=== PATIENT | female | born 1965 | race Two or more races ===

== ENCOUNTER 2025-02-22 10:09 | Emergency (ER) | payer OTHER ==
[~2025-02-22] VITALS: Ht 160 cm; Wt 78.4 kg
--- NOTE | 2025-02-22 10:29 | ED.PDOC ---
HPI (NEURO) HPI Comments 59 year old female PMHx HLD presents to the ED with a chief complaint of LT sided facial numbness onset today (02/22/25) around 07:00. Patient states she woke up around 07:00, noticed LT sided facial numbness with drooping. She went to bed last night around 200:00 with no symptoms. Upon ED arrival BP was 207/108. Patient was given Clonidine 0.2 mg PO. Denies chest pain, shortness of breath, headache, dizziness, fever, chills, blurred vision, changes in vision, nausea, vomiting. No other symptoms or modifying factors present at this time. Chief Complaint: High Blood Pressure Time Seen by MD: 10:20 Reviewed Notes: Medications, Allergies Information Source: Patient Mode of Arrival: Ambulatory Severity: Moderate Timing: Hours Duration: Since onset Prehospital treatment: None Numbness Location: Facial (LT sided) Onset: At rest Circumstances: Spontaneous Symptoms: Numbness (LT facial) Before: Normal History of: None Modifying factors: Nothing Associated Signs and Symptoms: Numbness Past Medical History PAST MEDICAL HISTORY: High Lipids Surgical History: Appendectomy, Hysterectomy HOME VISITOR History: No Pertinent HOME VISITOR History Family History Family History: Family hx of DM, Family hx of HTN Social History Smoker: Non-Smoker Alcohol: Denies ETOH Use Drugs: Denies Drug Use Lives In: Home Constitutional: denies: chills, diaphoresis, fatigue, fever, malaise, sweats, weakness, others EENTM: reports: others (Left facial droop); denies: blurred vision, double vision, ear bleeding, ear discharge, ear drainage, ear pain, ear ringing, eye pain, eye redness, hearing loss, mouth pain, mouth swelling, nasal discharge, nose bleeding, nose congestion, nose pain, photophobia, tearing, throat pain, throat swelling, voice changes Respiratory: denies: cough, hemoptysis, orthopnea, SOB at rest, shortness of breath, SOB with excertion, stridor, wheezing, others Cardiovascular: denies: chest pain, dizzy spells, diaphoresis, Dyspnea on exertion, edema, irregular heart beat, left arm pain, lightheadedness, palpitations, PND, syncope, others Gastrointestinal: denies: abdomen distended, abdominal pain, blood streaked bowels, constipated, diarrhea, dysphagia, difficulty swallowing, hematemesis, melena, nausea, poor appetite, poor fluid intake, rectal bleeding, rectal pain, vomiting, others Genitourinary: denies: abnormal vagina bleeding, burning, dyspareunia, dysuria, flank pain, frequency, hematuria, incontinence, pain, , vagina discharge, urgency, others Neurological: reports: numbness (LT facial); denies: dizziness, fainting, headache, left sided numbness, left sided weakness, paresthesia, pre-existing deficit, right sided numbness, right sided weakness, seizure, speech problems, tingling, tremors, weakness, others Musculoskeletal: denies: back pain, gout, joint pain, joint swelling, muscle pain, muscle stiffness, neck pain, others Integumetry: denies: bruises, change in color, change in hair/nails, dryness, laceration, lesions, lumps, rash, wounds, others Allergic/Immunocompromised: denies: Difficulty Healing, Frequent Infections, Hives, Itching, others Hematologic/Lymphatic: denies: anemia, blood clots, easy bleeding, easy bruising, swollen glands, others Endocrine: denies: excessive hunger, excessive sweating, excessive thirst, excessive urination, flushing, intolerance to cold, intolerance to heat, unexplained weight gain, unexplained weight loss, others Psychiatric: denies: anxiety, bipolar disorder, depression, hopeless, panic disorder, schizophrenia, sleepless, suicidal, others All Other Systems: Reviewed and Negative Physical Exam General Appearance: No Apparent Distress HEENT: Normal ENT Inspection, Pharynx Normal, TMs Normal Neck: Full Range of Motion, Non-Tender, Normal, Normal Inspection Respiratory: Chest Non-Tender, Lungs Clear, No Accessory Muscle Use, No Respiratory Distress, Normal Breath Sounds Cardiovascular: No Edema, No JVD, No Murmur, No Gallop, Normal Peripheral Pulses, Regular Rate/Rhythm Breast Exam: Deferred Gastrointestinal: No Organomegaly, Non Tender, No Pulsatile Mass, Normal Bowel Sounds, Soft Genitalia: Deferred Pelvic: Deferred Rectal: Deferred Extremities: No calf tenderness, Normal capillary refill, Normal inspection, Normal range of motion, Non-tender, No pedal edema Musculoskeletal : Apperance: Normal Neurologic: Alert, Facial Droop (Left-sided facial droop) Cerebellar Function: Normal Reflexes: Normal Skin: Dry, Normal Color, Warm Lymphatic: No Adenopathy EKG EKG : Pulse Rate (adult): 67 Cardiac Rhythm: NSR Comments low voltage Was a procedure done? Was a procedure done?: No Differential Diagnosis (SZ) Seizure: Other CVA: Kim's Palsy, CVA X-Ray, Labs, Meds, VS Vital Signs Date Time Temp Pulse Resp B/P (MAP) Pulse Ox O2 Delivery O2 Flow Rate FiO2 02/22/25 10:53 67 02/22/25 10:43 208/107 02/22/25 10:25 67 02/22/25 10:15 97.6 82 18 207/108 98 97.6 Current Medications Medications (Trade) Dose Ordered Sig/Hoang Route Start Time Stop Time Status Last Admin Clonidine HCl (Catapres Tablet) 0.2 mg ONCE ONCE PO 02/22/25 10:30 02/22/25 10:31 DC 02/22/25 10:43 PROCEDURE(s): HWOCT - HEAD WITHOUT CONTRAST IMPRESSION: No intracranial hemorrhage or mass effect. No intracranial hemorrhage or mass effect At this time the patient is being discharged The patient was given clonidine here in the emergency department's The patient will follow up with the primary care doctor The patient was placed on a Medrol Dosepak The patient will return to the emergency department's condition worsens. X-Ray, Labs, Meds, VS Comment Patient was medicated with Clonidine 0.2 mg PO for elevated BP. Time of 1ST Reevaluation: 10:50 Reevaluation 1ST: Unchanged Patient Education/Counseling: Diagnosis, Treatment, Prognosis, Need For Follow Up Family Education/Counseling: No Family Present Departure 1 Departure Time of Disposition: 12:37 Impression: Primary Impression: Kim's palsy Disposition: 01 HOME / SELF CARE / HOMELESS Condition: Fair e-Prescriptions Methylprednisolone (Medrol Dosepak) 4 Mg Stephon 4 MG PO UD, #21 TAB UAD Prov: FLORINA GUILLEN MD 02/22/25 Discharged With: Self Critical Care Note Critical Care Time?: No Stability Stability form required: No Heart Score Heart Score: Heart Score Response (Comments) Value History N/A 0 EKG N/A 0 Age N/A 0 Risk Factors N/A 0 Troponin N/A 0 Total 0 I personally scribed for FLORINA GUILLEN MD ([email or web address]) on 02/22/25 at 10:29. Electronically submitted by Alberta Coffey ([email or web address]). I personally scribed for FLORINA GUILLEN MD ([email or web address]) on 02/22/25 at 10:53. Electronically submitted by Alberta Coffey ([email or web address]). I personally scribed for FLORINA GUILLEN MD ([email or web address]) on 02/22/25 at 12:22. Electronically submitted by Chen Leal ([email or web address]). FLORINA GUILLEN MD Feb 22, 2025 10:29
--- NOTE | 2025-02-22 11:59 | DVH ---
CT HEAD WITHOUT CONTRAST Indication: Left facial numbness EXAM DATE: 02/22/2025 10:46 AM COMPARISON: None TECHNIQUE: CT of the head without intravenous contrast. RADIATION DOSE: CTDIvol: 53.42 mGy, DLP: 53.42 mGy*cm FINDINGS: There is no intracranial hemorrhage. There is no extra-axial fluid, mass, mass effect or midline shif t. The ventricles are midline and normal in size. Basilar cisterns are patent. Adan-white differentia tion is maintained. The paranasal sinuses and mastoids are well-pneumatized. Imaged portion of the orbits are unremarkabl e. IMPRESSION: No intracranial hemorrhage or mass effect. No intracranial hemorrhage or mass effect
[2025-02-22] MEDS ORDERED: METH4PAK PO (12:36)
[2025-02-22 13:29] VITALS: BP 155/70; PULSE 64; RESP 16; TEMP 98; O2SAT 97
--- NOTE | 2025-02-23 11:55 | ECG ---
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
== END 2025-02-22 13:29 | disposition home or self-care (01) ==
LOC: ER 10:09
DX: G51.0 Bell's palsy (principal); E78.5 Hyperlipidemia, unspecified; Z90.710 Acquired absence of both cervix and uterus; Z90.49 Acquired absence of other specified parts of digestive tract; Z79.899 Other long term (current) drug therapy
CPT/HCPCS: 70450; 93005